=== PATIENT | male | born 2000 | race Caucasian/White ===

== ENCOUNTER 2022-03-08 13:16 | Inpatient (IN) | payer OTHER ==
[~2022-03-08] VITALS: Ht 193 cm; Wt 79.5 kg
[2022-03-08 14:23] LABS: HEMATOCRIT 42.9 % (42.0-52.0); HEMOGLOBIN 14.4 g/dl (13.5-17.5); MEAN CORPUSCULAR HEMOGLOBIN 30.4 pg (27.0-33.0); MEAN CORPUSCULAR HGB CONC 33.6 g/dl (32.0-36.5); MEAN CORPUSCULAR VOLUME 90.5 fl (80.0-96.0); PLATELET COUNT, AUTOMATED 217 10^3/uL (150-450); RED BLOOD COUNT 4.74 10^6/uL (4.30-6.10); WHITE BLOOD COUNT 6.4 10^3/uL (4.0-10.0)
[2022-03-08 14:55] LABS: ACETAMINOPHEN LEVEL < 2.0 UG/ML (10.0-30.0); ALBUMIN 4.6 GM/DL (3.2-5.2); ALT/SGPT 23 U/L (12-78); BILIRUBIN,DIRECT 0.3 MG/DL (0.0-0.2); BILIRUBIN,TOTAL 1.3 MG/DL (0.2-1.0); BLOOD UREA NITROGEN 10 MG/DL (7-18); CALCIUM LEVEL 9.4 MG/DL (8.5-10.1); CARBON DIOXIDE LEVEL 23 MEQ/L (21-32); CHLORIDE LEVEL 109 MEQ/L (98-107); CREATININE FOR GFR 1.01 MG/DL (0.70-1.30); ETHYL ALCOHOL (ETHANOL) < 0.003 % (0.000-0.010); GLUCOSE, FASTING 97 MG/DL (70-100); SALICYLATE LEVEL < 1.7 MG/DL (5.0-30.0); SODIUM LEVEL 141 MEQ/L (136-145); THYROID STIMULATING HORMONE 0.964 uIU/ML (0.463-3.98); TOTAL PROTEIN 7.5 GM/DL (6.4-8.2)
[2022-03-08 15:00] LABS: RSV AMPLIFICATION NEGATIVE (NEGATIVE)
[2022-03-08] MEDS ORDERED: HOME MED LIST COMPLETE! XX SCH (15:05)
[2022-03-08 15:49] LABS: AMPHETAMINES LEVEL URINE NEGATIVE (NEGATIVE); BARBITURATES URINE NEGATIVE (NEGATIVE); BENZODIAZEPINES URINE NEGATIVE (NEGATIVE); CANNABINOIDS URINE NEGATIVE (NEGATIVE); COCAINE METABOLITE URINE NEGATIVE (NEGATIVE); METHADONE URINE NEGATIVE (NEGATIVE); OPIATES URINE NEGATIVE (NEGATIVE); PHENCYCLIDINE URINE NEGATIVE (NEGATIVE)
[2022-03-09] MEDS ORDERED: MOM 30ML SUSPENSION UDC PO PRN (17:55)
[2022-03-09] MEDS ORDERED: ACETAMINOPHEN TAB 650MG DOSE (2X325MG) PO PRN (17:55)
[2022-03-09] MEDS ORDERED: MAALOX 30 ML SUSP *UDC PO PRN (17:55)
[2022-03-09 18:30] VITALS: BP 124/58
[2022-03-09 19:57] VITALS: BP 124/68
[2022-03-09] MEDS ORDERED: LORazepam 1 MG TAB PO STA (20:46)
[2022-03-09] MEDS ORDERED: OLANZapine ORAL DISINTEGRATING TAB 5MG PO PRN (20:50)
[2022-03-09 22:05] VITALS: BP 141/78
[2022-03-10 06:00] VITALS: BP 119/57
[2022-03-10 06:17] VITALS: BP 119/59
[2022-03-10 08:32] VITALS: BP 119/59
[2022-03-10] MEDS: SERTRALINE HCL 50 MG TAB PO SCH (09:26)
[2022-03-10] MEDS ORDERED: hydrOXYzine 50 MG TAB PO PRN (11:10)
[2022-03-10 16:00] VITALS: BP_SYST 119; BP_SYST 130; BP_DIAS 59; BP_DIAS 70
[2022-03-10 17:46] VITALS: BP 130/70
[2022-03-10] MEDS: traZODone 50 MG TAB PO PRN (22:21)
[2022-03-11 06:27] VITALS: BP 118/56
[2022-03-11] MEDS: SERTRALINE HCL 50 MG TAB PO SCH (08:33)
[2022-03-11 17:31] VITALS: BP 134/64
[2022-03-11] MEDS: traZODone 50 MG TAB PO PRN (22:15)
[2022-03-12 06:41] VITALS: BP 132/61
[2022-03-12] MEDS: SERTRALINE HCL 50 MG TAB PO SCH (08:27)
[2022-03-12 16:18] VITALS: BP 129/58
[2022-03-12] MEDS: traZODone 50 MG TAB PO PRN (21:44)
[2022-03-13 06:34] VITALS: BP 119/56
[2022-03-13] MEDS: SERTRALINE HCL 50 MG TAB PO SCH (10:17)
[2022-03-13] MEDS: busPIRone 5 MG TAB PO SCH ×2 (10:27→22:54)
[2022-03-13 16:00] VITALS: BP 137/68
[2022-03-13] MEDS: traZODone 50 MG TAB PO PRN (22:53)
[2022-03-14 06:37] VITALS: BP 115/63
[2022-03-14] MEDS: busPIRone 5 MG TAB PO SCH ×2 (08:34→22:37)
[2022-03-14] MEDS: SERTRALINE HCL 50 MG TAB PO SCH (08:34)
[2022-03-14] MEDS: PILL CUTTER 1 EACH XX PRN (08:34)
[2022-03-14 16:36] VITALS: BP 135/61
[2022-03-14] MEDS: traZODone 50 MG TAB PO PRN (22:37)
[2022-03-15 06:28] VITALS: BP 135/84
[2022-03-15] MEDS: PILL CUTTER 1 EACH XX PRN (08:15)
[2022-03-15] MEDS: SERTRALINE HCL 50 MG TAB PO SCH (08:15)
[2022-03-15] MEDS: busPIRone 5 MG TAB PO SCH ×2 (08:15→21:04)
[2022-03-15 16:44] VITALS: BP 131/60
[2022-03-15] MEDS: traZODone 50 MG TAB PO PRN (21:40)
[2022-03-16 06:40] VITALS: BP 155/76
[2022-03-16] MEDS: SERTRALINE HCL 50 MG TAB PO SCH (08:55)
[2022-03-16] MEDS: busPIRone 10 MG TAB PO SCH ×2 (09:28→21:04)
[2022-03-16 18:03] VITALS: BP 138/66
[2022-03-16] MEDS: traZODone 50 MG TAB PO PRN (21:04)
[2022-03-17 06:23] VITALS: BP 132/75
[2022-03-17] MEDS: SERTRALINE HCL 50 MG TAB PO SCH (08:27)
[2022-03-17] MEDS: busPIRone 10 MG TAB PO SCH ×2 (08:27→20:08)
[2022-03-17 18:01] VITALS: BP 127/60
[2022-03-17] MEDS: traZODone 50 MG TAB PO PRN (21:43)
[2022-03-18 06:17] VITALS: BP 126/65
[2022-03-18] MEDS: busPIRone 10 MG TAB PO SCH (07:58)
[2022-03-18] MEDS: SERTRALINE HCL 50 MG TAB PO SCH (07:58)
[2022-03-18] MEDS ORDERED: SERT50TA29 PO (09:40)
[2022-03-18] MEDS ORDERED: HYDR-3363 PO (09:40)
[2022-03-18] MEDS ORDERED: BUSP10TA PO (09:40)
[2022-03-18] MEDS ORDERED: TRAZ-252 PO (09:40)
== END 2022-03-18 10:59 | disposition home or self-care (01) | DRG 882 ==
LOC: M ED 13:16 → M ED INP 03-09 17:53 → M PSY 03-09 18:18
PROVIDERS: ADMIT Psychiatry & Neurology Psychiatry; ATTEND Psychiatry & Neurology Psychiatry
DX: F43.25 Adjustment disorder with mixed disturbance of emotions and conduct (principal); R45.851 Suicidal ideations; Z91.51 Personal history of suicidal behavior; Z63.5 Disruption of family by separation and divorce; Z80.0 Family history of malignant neoplasm of digestive organs; Z62.810 Personal history of physical and sexual abuse in childhood; F60.89 Other specific personality disorders; F41.1 Generalized anxiety disorder; F32.9 Major depressive disorder, single episode, unspecified

== ENCOUNTER 2023-08-30 08:43 | Emergency (ER) | payer OTHER ==
[~2023-08-30] VITALS: Ht 193 cm; Wt 86.7 kg
[~2023-08-30 08:43] MED LIST: BUSP10TA PO; HYDR-3363 PO; SERT50TA29 PO; TRAZ-252 PO
[2023-08-30 10:35] LABS: RSV AMPLIFICATION NEGATIVE (NEGATIVE)
[2023-08-30] MEDS ORDERED: KETOROLAC 30 MG/ML 1ML VIAL IV ONE (11:20)
[2023-08-30] MEDS ORDERED: ONDANSETRON 4MG 2ML VIAL IV ONE (11:20)
[2023-08-30] MEDS ORDERED: NS 1,000 ML IV ONE (11:20)
[2023-08-30 11:51] LABS: BASO % 0.1 % (0.0-1.0); EOS % 0.1 % (0.0-3.0); HEMATOCRIT 46.7 % (42.0-52.0); HEMOGLOBIN 15.9 g/dl (13.5-17.5); LYMPH # 0.2 10^3/uL (1.5-5.0); LYMPH % 2.3 % (24.0-44.0); MEAN CORPUSCULAR HEMOGLOBIN 30.6 pg (27.0-33.0); MONO # 0.3 10^3/uL (0.0-0.8); MONO % 3.2 % (2.0-8.0); NEUTROPHILS # 8.7 10^3/uL (1.5-8.5); NEUTROPHILS % 94.1 % (36.0-66.0); PLATELET COUNT, AUTOMATED 195 10^3/uL (150-450); RED BLOOD COUNT 5.19 10^6/uL (4.30-6.10); WHITE BLOOD COUNT 9.2 10^3/uL (4.0-10.0)
[2023-08-30 12:17] LABS: LIPASE 29 U/L (12-53)
[2023-08-30 12:19] LABS: ALBUMIN 4.3 G/DL (3.2-5.2); ALKALINE PHOSPHATASE 36 U/L (46-116); ALT/SGPT 24 U/L (7.0-40); AST/SGOT 23 U/L (<34); BILIRUBIN,DIRECT 0.4 MG/DL (<0.4); BILIRUBIN,TOTAL 1.1 MG/DL (0.3-1.2); BLOOD UREA NITROGEN 17 MG/DL (9-23); CALCIUM LEVEL 9.3 MG/DL (8.5-10.1); CARBON DIOXIDE LEVEL 27 MMOL/L (20-31); CHLORIDE LEVEL 106 MMOL/L (98-107); CREATININE FOR GFR 0.94 MG/DL (0.70-1.30); GLOMERULAR FILTRATION RATE > 60.0 (>60); GLUCOSE, FASTING 122 MG/DL (60-100); POTASSIUM SERUM 4.4 MMOL/L (3.5-5.1); SODIUM LEVEL 141 MMOL/L (136-145)
[2023-08-30] MEDS ORDERED: ISOVUE-370 76% 100ML VIAL As Ordered ONE (12:31)
[2023-08-30 13:24] VITALS: BP 131/65; TEMP 98.9; O2SAT 100
[2023-08-30] MEDS ORDERED: ONDA4TAB6 PO (13:25)
== END 2023-08-30 13:39 | disposition home or self-care (01) ==
LOC: M ED 08:43
DX: K21.9 Gastro-esophageal reflux disease without esophagitis (principal); Z88.0 Allergy status to penicillin
CPT/HCPCS: 74177; 80048; 80076; 83690; 85025; 87631; 96361; 96374; 96375; 99284; J1885; J2405; Q9967